=== PATIENT | male | born 1935 | race Caucasian/White ===

== ENCOUNTER 2019-11-12 11:50 | Outpatient (CLI) | payer MEDICARE, SELFPAY ==
--- NOTE | 2019-11-12 | ECG_ITS ---
Measurements Intervals [place] Rate: 57 P: 62 NV: 177 QRS: 66 QRSD: 102 T: 53 QT: 392 QTc: 383 Interpretive Statements SINUS BRADYCARDIA BORDERLINE ECG Electronically Signed On 11-12-2019 12:51:05 CDT by Nehemiah Landry D.O.
--- NOTE | ~2019-11-12 | XR_ITS ---
EXAMINATION: XR chest 2V DATE: 11/12/2019 12:26 INDICATION: Right lower rib pain. Fall. TECHNIQUE: Frontal and lateral views of the chest were obtained. COMPARISON: CT abdomen and pelvis 09/06/2009 FINDINGS: There are small pleural effusions. A calcified left lung nodule and calcified left hilar ly mph nodes are consistent with old granulomatous disease. No pneumothorax. The heart size is normal. T here is mild anterior wedging of multiple vertebral bodies, likely chronic. There are fracture deform ities of right sixth and seventh ribs. IMPRESSION: 1. Small pleural effusions. 2. Age-indeterminate fractures of right sixth and seventh ribs. Reviewed, dictated and finalized at location A.
== END 2019-11-12 11:51 | disposition home or self-care (01) ==
LOC: ANHIMG 12:16
PROVIDERS: PCP Family Medicine; Visit Provider Physician Assistant
DX: R07.81 Pleurodynia (principal); I49.9 Cardiac arrhythmia, unspecified; J90 Pleural effusion, not elsewhere classified; S22.41XA Multiple fractures of ribs, right side, initial encounter for closed fracture; X58.XXXA Exposure to other specified factors, initial encounter; R94.31 Abnormal electrocardiogram [ECG] [EKG]
CPT/HCPCS: 71046; 93005

== ENCOUNTER → 2021-10-20 10:03 | Outpatient (CLI) | payer MEDICARE, SELFPAY ==
--- NOTE | ~2021-10-20 | XR_ITS ---
EXAMINATION: [id number] DATE: 10/20/2021 10:29 INDICATION: Left-sided rib pain TECHNIQUE: A frontal inspiratory view of the chest and 3 views of the left ribs were obtained. COMPARISON: Chest radiograph dated 11/12/2019 FINDINGS: Unchanged subtle old anterior left fifth rib fracture deformity. Minimally displaced acute-appearing anterior left 10th rib fracture. No other rib fractures identified. Lungs are clear with no focal air space opacities, pulmonary edema, pleural effusion or pneumothorax. Tiny mediastinal silhouette is no rmal. Calcified left hilar lymph nodes consistent with old granulomatous disease. A few chronic compr ession fractures in the mid to lower thoracic spine. Mild lumbar dextrorotoscoliosis. IMPRESSION: 1. Minimally displaced anterior left 10th rib fracture. No pneumothorax or other acute cardiopulmonar y disease. Reviewed, dictated and finalized at location B. IMPRESSION: 1. Minimally displaced anterior left 10th rib fracture. No pneumothorax or othe r acute cardiopulmonary disease.
== END ==
PROVIDERS: PCP Physician Assistant; Visit Provider Physician Assistant
DX: S22.32XA Fracture of one rib, left side, initial encounter for closed fracture (principal); R07.81 Pleurodynia
CPT/HCPCS: 71101